=== PATIENT | female | born 1960 | race Caucasian/White ===

== ENCOUNTER 2018-10-24 18:52 | Emergency (ER) | payer MEDICARE ==
[~2018-10-24] VITALS: Ht 157.5 cm; Wt 84.1 kg
[~2018-10-24 18:52] MED LIST: ALBU6.7H9 INH; BUPR-94 PO; EPIN0.3P8 IM; ERGO500041 PO; ESTR1PAT TD; GABA600T13 PO; HYDR-4353 PO; HYDR12.55 PO; LAMO25TA5 PO; LURA120T PO; MODA200T48 PO; OMEP-50 PO; PRED10TA23 PO; PROG200C11 PO; ZOLP5TAB2 PO
[2018-10-24 18:54] VITALS: BP 159/95
[2018-10-24] MEDS ORDERED: famotidine/PF 10 mg/ml inj IV ONE (19:10)
[2018-10-24] MEDS ORDERED: methylPREDNISolone sod succ 125mg/2ml vial IV ONE (19:10)
[2018-10-24] MEDS ORDERED: EPIN0.3P3 IJ (20:18)
[2018-10-24] MEDS ORDERED: PRED20TA PO (20:18)
== END 2018-10-24 20:33 | disposition home or self-care (01) ==
LOC: ER 18:53
DX: T78.3XXA Angioneurotic edema, initial encounter (principal); T78.1XXA Other adverse food reactions, not elsewhere classified, initial encounter; I10 Essential (primary) hypertension; K21.9 Gastro-esophageal reflux disease without esophagitis; E11.9 Type 2 diabetes mellitus without complications; F31.9 Bipolar disorder, unspecified; Z91.011 Allergy to milk products; Z88.0 Allergy status to penicillin; Z88.8 Allergy status to other drugs, medicaments and biological substances; Z88.1 Allergy status to other antibiotic agents; Z79.899 Other long term (current) drug therapy; X58.XXXA Exposure to other specified factors, initial encounter
CPT/HCPCS: 96374; 96375; 99283; J2930; J3490

== ENCOUNTER 2020-01-04 19:55 | Emergency (ER) | payer MEDICARE ==
[~2020-01-04] VITALS: Ht 157.5 cm; Wt 82.6 kg
[~2020-01-04 19:55] MED LIST changes: +EPIN0.3P3 IJ
--- NOTE | 2020-01-04 20:17 | NUR ---
UPON DR ROMANO ASSSESSMENTS OF THE PATIENT ABD PT CRIED OUT IN SERVE PAIN REPORTING THAT IT RADIATES FROM HER ABDOMEN TO HER PELVIC REGION TO HER LOWER BACK . UPON LIFTING HER LEFT LEG APPROX 45 DEGREES SHE ALSO HAD SEVERE PAIN ACROSS HER LOWER BACK . DR COLVIN WILL REASSESS PT AFTER SHE HAS BEEN MEDICATED FOR DISCOMFORT . REPORTED OFF TO PRIMARY FLAVIA MENDOZA
[2020-01-04] MEDS ORDERED: diazepam inj 5 MG/ML inj. IV ONE (20:20)
--- NOTE | 2020-01-04 20:42 | NUR ---
Pt's IV started by EMS infiltrated, one unsuccessful attempt to the right wrist. Will ask another staff engineer to start IV access then will medicate as ordered.
[2020-01-04] MEDS ORDERED: morphine 4 MG/ML inj SYRINge IV ONE (21:15)
[2020-01-04 21:41] LABS: BASOPHILS # (AUTO) 0.1 X10'3 (0-0.2); BASOPHILS % (AUTO) 0.5 % (0-1); EOSINOPHILS # (AUTO) 0.1 X10'3 (0-0.9); EOSINOPHILS % (AUTO) 0.8 % (0-6); HEMATOCRIT 43.4 % (35.0-45.0); HEMOGLOBIN 14.7 g/dl (12.0-16.0); LYMPHOCYTES # (AUTO) 1.2 X10'3 (1.1-4.8); LYMPHOCYTES % (AUTO) 11.9 % (21-51); MEAN CORPUSCULAR HEMOGLOBIN 31.4 PG (27.0-31.0); MEAN CORPUSCULAR VOLUME 92.3 FL (78-98); MEAN PLATELET VOLUME 8.4 FL (7.4-10.4); MONOCYTES # (AUTO) 0.7 X10'3 (0-0.9); MONOCYTES % (AUTO) 6.7 % (2-12); NEUTROPHILS # (AUTO) 8.4 X10'3 (1.8-7.7); NEUTROPHILS % (AUTO) 80.1 % (42-75); PLATELET COUNT 194 X10'3 (140-440); RED CELL DISTRIBUTION WIDTH 12.8 % (11.5-14.5); WHITE BLOOD COUNT 10.5 X10'3 (4.5-11.0)
[2020-01-04 21:55] LABS: ALBUMIN 3.8 G/DL (3.4-5.0); ANION GAP 7 (8-16); BLOOD UREA NITROGEN 21 MG/DL (7-18); BUN/CREATININE RATIO 16.9 (6.6-38.0); CALCIUM 9.5 MG/DL (8.5-10.1); CHLORIDE 101 MMOL/L (99-107); CREATININE 1.24 MG/DL (0.40-0.90); GLUCOSE 117 MG/DL (70-104); POTASSIUM 3.1 MMOL/L (3.5-5.1); SODIUM 138 MMOL/L (135-145); TOTAL CARBON DIOXIDE 30.3 MMOL/L (24-32); eGFR 45 ML/MIN
--- NOTE | 2020-01-04 22:15 | NUR ---
Pt medicated as ordered for pain.
[2020-01-04] MEDS ORDERED: iohexol 300mg/ml 100ml inj. ONE (22:26)
[2020-01-04] MEDS ORDERED: morphine 10mg/ml inj. IV ONE (22:55)
[2020-01-04] MEDS ORDERED: acetaminophen 325mg tablet PO ONE (22:55)
[2020-01-04] MEDS ORDERED: gabapentin 400mg capsule PO ONE (22:55)
[2020-01-04] MEDS ORDERED: ketorolac trometh. 30mg/ml inj. IV ONE (22:55)
[2020-01-04] MEDS ORDERED: LIDOcaine 5% patch TP ONE (22:55)
[2020-01-04] MEDS ORDERED: normal saline 1000ml 1,000 ML IV ONE ×2 (22:55)
[2020-01-04] MEDS ORDERED: ketamine 10mg/ml 20ml inj 25 MG in normal saline 100ml IV soln 97.5 ML IV ONE (23:20)
[2020-01-04] MEDS ORDERED: magnesium 2GM in 50ml NS 50 ML IV ONE (23:20)
[2020-01-04] MEDS ORDERED: proCHLORperazine 10 MG/2 ml inj IV ONE (23:20)
--- NOTE | 2020-01-05 00:20 | NUR ---
PT TO CT VIA [facility]
--- NOTE | 2020-01-05 00:46 | NUR ---
held ketamine per dr martini . pt currently comfortable . reports being really sleepy . o2 per nc place at 2 l to help with desats to 90 % . pt currently at 96 % 1.5 l nc will continue to monitor and reassess.
[2020-01-05 01:56] LABS: CLARITY,URINE CLEAR (Clear); COLOR,URINE YELLOW (Yellow); GLUCOSE, URINE NEGATIVE (Neg); KETONES,URINE NEGATIVE (Neg); LEUKOCYTE ESTERASE ,URINE NEGATIVE (Neg); NITRITES, URINE NEGATIVE (Neg); OCCULT BLOOD,URINE NEGATIVE (Neg); PROTEIN,URINE NEGATIVE (Neg); UROBILINOGEN,URINE 0.2 E.U/dL (0.2-1.0)
[2020-01-05 02:01] LABS: UA COLLECTION TYPE CLN CATCH MIDSTREAM
[2020-01-05 02:09] LABS: URINE AMPHETAMINE SCREEN NEGATIVE (Neg); URINE BARBITUATE SCREEN NEGATIVE (Neg); URINE BENZODIAZEPINES SCREEN NEGATIVE (Neg); URINE CANNABINOID SCREEN POSITIVE (Neg); URINE COCAINE SCREEN NEGATIVE (Neg); URINE METHADONE SCREEN NEGATIVE (Neg); URINE OPIATE SCREEN POSITIVE (Neg); URINE PHENCYCLIDINE SCREEN NEGATIVE (Neg)
[2020-01-05] MEDS ORDERED: ACET-812 PO (02:09)
[2020-01-05] MEDS ORDERED: MELO-100 PO (02:09)
[2020-01-05] MEDS ORDERED: CYCL-1 PO (02:09)
[2020-01-05 04:56] VITALS: BP 152/86
== END 2020-01-05 03:35 | disposition home or self-care (01) ==
LOC: ER 19:55
DX: M54.5 Low back pain (principal); G89.29 Other chronic pain; I10 Essential (primary) hypertension; K21.9 Gastro-esophageal reflux disease without esophagitis; E11.9 Type 2 diabetes mellitus without complications; F31.9 Bipolar disorder, unspecified; F12.90 Cannabis use, unspecified, uncomplicated; Z90.49 Acquired absence of other specified parts of digestive tract; Z91.011 Allergy to milk products; Z98.890 Other specified postprocedural states; Z88.0 Allergy status to penicillin; Z91.018 Allergy to other foods; Z79.899 Other long term (current) drug therapy
CPT/HCPCS: 36415; 74177; 80048; 80305; 81003; 85025; 96361; 96365; 96366; 96375; 96376; 99285; J0780; J1885; J2270; J3360; J3475; J7030; Q9967

== ENCOUNTER 2020-09-20 13:17 | Outpatient (CLI) | payer MEDICARE, MEDICAID ==
[~2020-09-20 13:17] MED LIST changes: +ACET-812 PO; +CYCL-1 PO; +MELO-100 PO
== END 2020-09-20 23:59 | disposition home or self-care (01) ==
LOC: CARD DIAG 13:17
PROVIDERS: ATTEND Family Medicine
DX: I08.0 Rheumatic disorders of both mitral and aortic valves (principal)
CPT/HCPCS: 93306

== ENCOUNTER 2021-03-26 10:05 | Day surgery (SDC) | payer MEDICARE, MEDICAID ==
[~2021-03-26] VITALS: Ht 157.5 cm; Wt 82.4 kg
[2021-03-26] VITALS (15 sets, daily range): BP systolic 117–165; BP diastolic 77–122
[2021-03-26] MEDS ORDERED: ringers solution, lacted 1,000 ML IV SCH (10:46)
[2021-03-26] MEDS ORDERED: famotidine 20mg tablet PO ONE (10:46)
[2021-03-26] MEDS ORDERED: clindamycin-Cleocin 900mg/D5W 50 ML IV ONE (10:50)
[2021-03-26] MEDS ORDERED: meperidine/PF 25mg/ml syringe IV STA (10:52)
[2021-03-26 11:14] LABS: BASOPHILS # (AUTO) 0.1 X10'3 (0-0.2); BASOPHILS % (AUTO) 1.2 % (0-1); EOSINOPHILS # (AUTO) 0.5 X10'3 (0-0.9); EOSINOPHILS % (AUTO) 6.1 % (0-6); LYMPHOCYTES # (AUTO) 1.9 X10'3 (1.1-4.8); LYMPHOCYTES % (AUTO) 24.6 % (21-51); MEAN CORPUSCULAR HEMOGLOBIN 29.8 PG (27.0-31.0); MEAN CORPUSCULAR HGB CONC 34.7 g/dL (33.0-36.5); MEAN CORPUSCULAR VOLUME 85.8 FL (78-98); MONOCYTES # (AUTO) 0.6 X10'3 (0-0.9); MONOCYTES % (AUTO) 7.6 % (2-12); NEUTROPHILS # (AUTO) 4.7 X10'3 (1.8-7.7); NEUTROPHILS % (AUTO) 60.5 % (42-75); PRE OP HEMATOCRIT 49.2 % (35.0-45.0); PRE OP HEMOGLOBIN 17.1 g/dL (12.0-16.0); PRE OP PLATELET COUNT 254 X10'3 (140-440); RED BLOOD COUNT 5.74 X10'6 (4.20-5.60); RED CELL DISTRIBUTION WIDTH 13.4 % (11.5-14.5)
[2021-03-26] MEDS ORDERED: CARV12.549 PO (11:25)
[2021-03-26] MEDS ORDERED: CYCL-1 PO (11:25)
[2021-03-26] MEDS ORDERED: AMLO5TAB16 PO (11:25)
[2021-03-26] MEDS ORDERED: ZOFRAN PO (11:25)
[2021-03-26] MEDS ORDERED: HYDR25TA4 PO (11:25)
[2021-03-26] MEDS ORDERED: OMEP-50 PO (11:25)
[2021-03-26] MEDS ORDERED: SUCR1TAB PO (11:25)
[2021-03-26] MEDS ORDERED: METF-436 PO (11:25)
[2021-03-26 11:26] LABS: ALANINE AMINOTRANSFERASE 19 U/L (12-78); ALBUMIN 3.7 G/DL (3.4-5.0); ALKALINE PHOSPHATASE 70 IU/L (46-116); ANION GAP 11 (8-16); ASPARTATE AMINO TRANSFERASE 23 U/L (10-37); BILIRUBIN,TOTAL 1.7 MG/DL (0.1-1.0); BLOOD UREA NITROGEN 13 MG/DL (7-18); BUN/CREATININE RATIO 12.6 (6.6-38.0); CALCIUM 9.5 MG/DL (8.5-10.1); CHLORIDE 103 MMOL/L (99-107); CREATININE 1.03 MG/DL (0.40-0.90); GLUCOSE 143 MG/DL (70-104); SODIUM 140 MMOL/L (135-145); TOTAL PROTEIN 7.4 G/DL (6.4-8.2); eGFR 55 ML/MIN
[2021-03-26 11:31] LABS: POTASSIUM 2.8 MMOL/L (3.5-5.1)
[2021-03-26] MEDS ORDERED: potassium CL 10mEq/100ml bag 100 ML IV SCH (11:55)
[2021-03-26] MEDS ORDERED: potassium Cl 10 mEq/100mL bag IV SCH (11:55)
[2021-03-26] MEDS ORDERED: BUPIVAcaine/PF 2.5 mg/ml (0.25%) 30ml vial IJ ONE (12:30)
[2021-03-26] MEDS ORDERED: sugammadex 200mg/2ml injection IV ONE (12:45)
--- NOTE | 2021-03-26 12:59 | NUR ---
Received from OR via [facility], accompanied by Anesthesiologist DR HAYDEN and report given by Anesthesiologist. PT LOUD, COUGHING, DENIES PAIN. ABDOMEN W/1 [place] DRSG TO UMBILICUS CDI. Addendum: 03/26/21 at 1356 by Elis Oviedo RN Amended: Links added.
[2021-03-26] MEDS ORDERED: benzocaine/menthol oral lozeng 1 EACH BOX MM PRN (13:05)
--- NOTE | 2021-03-26 15:09 | NUR ---
PT STATES REMAINS COMFORTABLE, COUGH SUBSIDED. PT UP AND ABLE TO AMBULATE SAFELY. D/C INSTRUCTIONS GIVEN AND GONE OVER W/PT WHO VERBALIZED UNDERSTANDING. PT D/CD TO HOME VIA W/C TO PRIVATE VEHICLE W/O INCIDENT. Addendum: 03/26/21 at 1538 by Elis Oviedo RN Amended: Links added.
== END 2021-03-26 15:09 | disposition home or self-care (01) ==
LOC: PAS 10:05
PROVIDERS: ATTEND Surgery
DX: K43.6 Other and unspecified ventral hernia with obstruction, without gangrene (principal); E11.22 Type 2 diabetes mellitus with diabetic chronic kidney disease; I12.9 Hypertensive chronic kidney disease with stage 1 through stage 4 chronic kidney disease, or unspecified chronic kidney disease; N18.30 Chronic kidney disease, stage 3 unspecified; F32.A Depression, unspecified; J45.909 Unspecified asthma, uncomplicated; E66.9 Obesity, unspecified; Z68.33 Body mass index [BMI] 33.0-33.9, adult; Z88.0 Allergy status to penicillin; Z88.1 Allergy status to other antibiotic agents; Z88.8 Allergy status to other drugs, medicaments and biological substances; Z79.899 Other long term (current) drug therapy; Z20.822 Contact with and (suspected) exposure to COVID-19
CPT/HCPCS: 36415; 49561; 80053; 82948; 85025; 87635; 93005; C9803; J2175; J3490; J7030; J7120; Z7506; Z7512; A4618; A7000

== ENCOUNTER 2021-04-10 11:45 | Day surgery (SDC) | payer MEDICARE, MEDICAID ==
[~2021-04-10] VITALS: Ht 157.5 cm; Wt 85.1 kg
[2021-04-10] VITALS (11 sets, daily range): BP systolic 110–155; BP diastolic 69–88
[~2021-04-10 11:45] MED LIST changes: -ACET-812 PO; -ALBU6.7H9 INH; +AMLO5TAB16 PO; -BUPR-94 PO; +CARV12.549 PO; -EPIN0.3P3 IJ; -EPIN0.3P8 IM; -ERGO500041 PO; -ESTR1PAT TD; -GABA600T13 PO; -HYDR-4353 PO; -HYDR12.55 PO; +HYDR25TA4 PO; -LAMO25TA5 PO; -LURA120T PO; -MELO-100 PO; +METF-436 PO; -MODA200T48 PO; -OMEP-50 PO; +OMEP20CA16 PO; -PRED10TA23 PO; -PROG200C11 PO; +ZOFRAN PO; -ZOLP5TAB2 PO; +clindamycin-Cleocin 900mg/D5W 50 ML IV ONE; +famotidine 20mg tablet PO ONE; +ringers solution, lacted 1,000 ML IV SCH
[2021-04-10 12:32] LABS: BASOPHILS # (AUTO) 0.1 X10'3 (0-0.2); BASOPHILS % (AUTO) 1.3 % (0-1); EOSINOPHILS # (AUTO) 0.5 X10'3 (0-0.9); EOSINOPHILS % (AUTO) 9.4 % (0-6); LYMPHOCYTES # (AUTO) 1.6 X10'3 (1.1-4.8); LYMPHOCYTES % (AUTO) 28.3 % (21-51); MEAN CORPUSCULAR HEMOGLOBIN 30.2 PG (27.0-31.0); MEAN CORPUSCULAR HGB CONC 34.7 g/dL (33.0-36.5); MEAN CORPUSCULAR VOLUME 87.2 FL (78-98); MEAN PLATELET VOLUME 7.6 FL (7.4-10.4); MONOCYTES # (AUTO) 0.5 X10'3 (0-0.9); PRE OP HEMOGLOBIN 14.9 g/dL (12.0-16.0); PRE OP PLATELET COUNT 261 X10'3 (140-440); RED BLOOD COUNT 4.93 X10'6 (4.20-5.60); RED CELL DISTRIBUTION WIDTH 13.7 % (11.5-14.5)
[2021-04-10] MEDS ORDERED: ondansetron/PF 4mg/2ml inj IV PRN (12:35)
[2021-04-10] MEDS ORDERED: morphine 4 MG/ML inj SYRINge IV PRN (12:35)
[2021-04-10] MEDS ORDERED: proCHLORperazine 10 MG/2 ml inj IV PRN (12:35)
[2021-04-10] MEDS ORDERED: ringers solution, lacted 1,000 ML IV SCH (12:35)
[2021-04-10] MEDS ORDERED: meperidine/PF 25mg/ml syringe IV PRN ×3 (12:35)
[2021-04-10] MEDS ORDERED: morphine 2 MG/ML inj. syringe IV PRN (12:35)
[2021-04-10] MEDS ORDERED: BUPIVAcaine/PF 2.5 mg/ml (0.25%) 30ml vial ONE ×2 (12:40→13:53)
[2021-04-10 13:06] LABS: ALBUMIN 3.6 G/DL (3.4-5.0); ALBUMIN/GLOBULIN RATIO 1.2 (1.1-1.5); ALKALINE PHOSPHATASE 63 IU/L (46-116); BLOOD UREA NITROGEN 14 MG/DL (7-18); BUN/CREATININE RATIO 17.3 (6.6-38.0); CALCIUM 8.8 MG/DL (8.5-10.1); CHLORIDE 105 MMOL/L (99-107); CREATININE 0.81 MG/DL (0.40-0.90); PRE OP ALT 24 U/L (30-65); PRE OP ANION GAP 8 (8-16); PRE OP AST 20 U/L (10-37); PRE OP BILIRUB, TOTAL 0.8 MG/DL (0.0-1.0); PRE OP GLUCOSE 104 MG/DL (70-104); PRE OP POTASSIUM 3.9 MMOL/L (3.4-5.1); PRE OP SODIUM 140 MMOL/L (135-145); TOTAL PROTEIN 6.7 G/DL (6.4-8.2); eGFR 73 ML/MIN
[2021-04-10 13:11] LABS: CLARITY,URINE CLEAR (Clear); COLOR,URINE YELLOW (Yellow); GLUCOSE, URINE NEGATIVE (Neg); KETONES,URINE NEGATIVE (Neg); LEUKOCYTE ESTERASE ,URINE NEGATIVE (Neg); NITRITES, URINE NEGATIVE (Neg); OCCULT BLOOD,URINE NEGATIVE (Neg); PH,URINE 5.5 (4.8-8.0); PROTEIN,URINE NEGATIVE (Neg); UROBILINOGEN,URINE 0.2 E.U/dL (0.2-1.0)
[2021-04-10 13:30] LABS: UA COLLECTION TYPE CLN CATCH MIDSTREAM
[2021-04-10] MEDS ORDERED: sevoflurane 250ml liquid IH ONE (13:46)
[2021-04-10] MEDS ORDERED: neostigmine methylsulfate 1 MG/ML 10ml vial ONE (13:46)
[2021-04-10] MEDS ORDERED: dexamethasone sod phosphate 10mg/ml inj ONE (13:46)
[2021-04-10] MEDS ORDERED: glycopyrrolate 0.2mg/ml inj ONE (13:46)
[2021-04-10] MEDS ORDERED: fentaNYL /PF 50mcg/ml 5ml ampule ONE (13:52)
[2021-04-10] MEDS ORDERED: midazolam 1 mg/ML 2ml injection ONE (13:52)
[2021-04-10] MEDS ORDERED: propofol inj 20 ML IV ONE (13:52)
[2021-04-10] MEDS ORDERED: rocuronium 10mg/ml inj IV ONE (13:52)
[2021-04-10] MEDS ORDERED: BUPIVAcaine/PF 2.5mg/ml (0.25%) 10ml vial ONE (13:53)
[2021-04-10] MEDS ORDERED: BUPIVACAINE liposomal/PF 13.3 MG/ML vial IM ONE (13:53)
[2021-04-10] MEDS ORDERED: ondansetron/PF 4mg/2ml inj ONE (14:45)
[2021-04-10] MEDS ORDERED: labetalol 20mg/4ml (5mg/ml) syringe IV ONE (14:45)
[2021-04-10] MEDS ORDERED: ketorolac trometh. 30mg/ml inj. ONE (15:17)
--- NOTE | 2021-04-10 15:22 | NUR ---
Received from OR via , accompanied by Anesthesiologist DR GONSALES and report given by Anesthesiolgist. PT PRESENTS WITH 20G RIGHT HAND, ABD DRESSING DRY AND INTACT. VSS Addendum: 04/10/21 at 1529 by Betty Gimenez RN, RN Amended: Links added.
--- NOTE | 2021-04-10 16:52 | NUR ---
PT HAS MET ALL DC CRITERIA. IV DC'D WITH CATHETER INTACT. DC ISNTRUCTIONS REVIEWED WITH PT, PT VERBALIZED UNDERSTANDING WITH NO FURTHER QUESTIONS AT THIS TIME. PT WHEELED [facility] OF [facility] IS WHEELCHAIR TO PRIVATE VEHICLE WHERE PT'S SON WAS WAITING TO TAKE PT HOME. Addendum: 04/10/21 at 1705 by Betty Gimenez RN, RN Amended: Links added.
== END 2021-04-10 16:52 | disposition home or self-care (01) ==
LOC: OR 11:45
PROVIDERS: ATTEND Surgery
DX: K43.2 Incisional hernia without obstruction or gangrene (principal); E11.22 Type 2 diabetes mellitus with diabetic chronic kidney disease; I12.9 Hypertensive chronic kidney disease with stage 1 through stage 4 chronic kidney disease, or unspecified chronic kidney disease; N18.30 Chronic kidney disease, stage 3 unspecified; F32.9 Major depressive disorder, single episode, unspecified; K21.9 Gastro-esophageal reflux disease without esophagitis; E66.9 Obesity, unspecified; Z68.34 Body mass index [BMI] 34.0-34.9, adult; G89.29 Other chronic pain; Z79.899 Other long term (current) drug therapy; Z88.0 Allergy status to penicillin; Z88.8 Allergy status to other drugs, medicaments and biological substances; Z90.49 Acquired absence of other specified parts of digestive tract; Z98.890 Other specified postprocedural states; Z20.822 Contact with and (suspected) exposure to COVID-19; Z82.49 Family history of ischemic heart disease and other diseases of the circulatory system
CPT/HCPCS: 36415; 49654; 64488; 80053; 81003; 82948; 85025; 87635; C1781; C9290; C9803; J1100; J1885; J2175; J2250; J2405; J2704; J2710; J3010; J3490; J7120; Z7506; Z7508; Z7512; A4215; A4618; A7000

== ENCOUNTER 2021-05-09 09:10 | Day surgery (SDC) | payer MEDICARE, OTHER ==
[~2021-05-09] VITALS: Ht 157.5 cm; Wt 84.6 kg
[~2021-05-09 09:10] MED LIST changes: -clindamycin-Cleocin 900mg/D5W 50 ML IV ONE; -famotidine 20mg tablet PO ONE; -ringers solution, lacted 1,000 ML IV SCH
[2021-05-09 09:25] VITALS: BP_SYST 159; BP_DIAS 124; BP_DIAS 127
[2021-05-09] MEDS ORDERED: albumin 25% 100mL bottle x 1 IV PRN (09:45)
--- NOTE | 2021-05-09 10:45 | NUR ---
No interventions or procedures performed for this patient. Patient a/o x 4 with stable vital signs at time of discharge. Patient ambulated to lobby. All discharge needs met.
[2021-05-10] MEDS ORDERED: pneumococcal 23-VAL P-sac vacc 25 mcg/0.5ml vial IMVAC ONE (13:10)
== END 2021-05-09 10:45 | disposition home or self-care (01) ==
LOC: SSTAY O 09:10
PROVIDERS: ATTEND Radiology Diagnostic Radiology
DX: R18.8 Other ascites (principal); Z53.8 Procedure and treatment not carried out for other reasons; K74.60 Unspecified cirrhosis of liver; I10 Essential (primary) hypertension; E11.9 Type 2 diabetes mellitus without complications; Z98.890 Other specified postprocedural states; Z88.8 Allergy status to other drugs, medicaments and biological substances; Z88.0 Allergy status to penicillin; Z79.899 Other long term (current) drug therapy; Z82.49 Family history of ischemic heart disease and other diseases of the circulatory system
CPT/HCPCS: 76705

== ENCOUNTER 2021-07-04 16:25 | Emergency (ER) | payer MEDICARE, OTHER ==
[~2021-07-04] VITALS: Ht 157.5 cm; Wt 81.8 kg
[~2021-07-04 16:25] MED LIST changes: -CYCL-1 PO; -METF-436 PO; +iohexol 300mg/ml 100ml inj. ONE
[2021-07-04 16:37] VITALS: BP 161/83
[2021-07-04 17:32] LABS: BASOPHILS # (AUTO) 0.1 X10'3 (0-0.2); BASOPHILS % (AUTO) 0.7 % (0-1); EOSINOPHILS # (AUTO) 0.2 X10'3 (0-0.9); HEMATOCRIT 40.4 % (35.0-45.0); HEMOGLOBIN 14.1 g/dl (12.0-16.0); LYMPHOCYTES % (AUTO) 24.7 % (21-51); MEAN CORPUSCULAR HEMOGLOBIN 30.4 PG (27.0-31.0); MEAN CORPUSCULAR HGB CONC 34.9 g/dL (33.0-36.5); MEAN CORPUSCULAR VOLUME 87.2 FL (78-98); MEAN PLATELET VOLUME 6.9 FL (7.4-10.4); MONOCYTES # (AUTO) 0.5 X10'3 (0-0.9); MONOCYTES % (AUTO) 6.4 % (2-12); NEUTROPHILS # (AUTO) 5.3 X10'3 (1.8-7.7); NEUTROPHILS % (AUTO) 65.2 % (42-75); PLATELET COUNT 414 X10'3 (140-440); RED BLOOD COUNT 4.64 X10'6 (4.20-5.60); RED CELL DISTRIBUTION WIDTH 13.9 % (11.5-14.5); WHITE BLOOD COUNT 8.2 X10'3 (4.5-11.0)
[2021-07-04 17:44] LABS: ALANINE AMINOTRANSFERASE 19 U/L (12-78); ALBUMIN/GLOBULIN RATIO 0.7 (1.1-1.5); ALKALINE PHOSPHATASE 79 IU/L (46-116); ANION GAP 10 (8-16); ASPARTATE AMINO TRANSFERASE 15 U/L (10-37); BILIRUBIN,TOTAL 0.3 MG/DL (0.1-1.0); BLOOD UREA NITROGEN 15 MG/DL (7-18); BUN/CREATININE RATIO 12.7 (6.6-38.0); CALCIUM 8.5 MG/DL (8.5-10.1); CHLORIDE 100 MMOL/L (99-107); CREATININE 1.18 MG/DL (0.40-0.90); GLUCOSE 133 MG/DL (70-104); POTASSIUM 3.5 MMOL/L (3.5-5.1); SODIUM 139 MMOL/L (135-145); TOTAL CARBON DIOXIDE 29.3 MMOL/L (24-32); TOTAL PROTEIN 7.4 G/DL (6.4-8.2); eGFR 47 ML/MIN
== END 2021-07-04 18:04 | disposition home or self-care (01) ==
LOC: ER 16:26
DX: L03.116 Cellulitis of left lower limb (principal); M79.89 Other specified soft tissue disorders; I10 Essential (primary) hypertension; K21.9 Gastro-esophageal reflux disease without esophagitis; E11.9 Type 2 diabetes mellitus without complications; G89.29 Other chronic pain; F31.9 Bipolar disorder, unspecified; F12.90 Cannabis use, unspecified, uncomplicated; Z90.49 Acquired absence of other specified parts of digestive tract; Z88.0 Allergy status to penicillin; Z88.8 Allergy status to other drugs, medicaments and biological substances; Z79.899 Other long term (current) drug therapy
CPT/HCPCS: 36415; 80053; 85025; 93971; 99284; Q9967

== ENCOUNTER 2021-07-16 10:10 | Outpatient (CLI) | payer MEDICARE, OTHER ==
[~2021-07-16 10:10] MED LIST changes: -iohexol 300mg/ml 100ml inj. ONE
== END 2021-07-16 23:59 | disposition home or self-care (01) ==
LOC: RAD 10:10
PROVIDERS: ATTEND Nurse Practitioner
DX: L03.116 Cellulitis of left lower limb (principal)
CPT/HCPCS: 73718

== ENCOUNTER 2021-09-04 10:53 | Day surgery (SDC) | payer MEDICARE, OTHER ==
[~2021-09-04] VITALS: Ht 157.5 cm; Wt 79.6 kg
[2021-09-04] VITALS (10 sets, daily range): BP systolic 114–157; BP diastolic 52–88
[2021-09-04] MEDS ORDERED: MIDAZolam 1mg/ml 10ml vial IV ONE (11:30)
[2021-09-04] MEDS ORDERED: fentaNYL/PF 50MCG/1 ML 2ML syringe IV ONE (11:30)
[2021-09-04] MEDS ORDERED: normal saline 1000ml 1,000 ML IV SCH (12:00)
[2021-09-04 12:24] LABS: BASOPHILS # (AUTO) 0.1 X10'3 (0-0.2); EOSINOPHILS # (AUTO) 0.2 X10'3 (0-0.9); EOSINOPHILS % (AUTO) 4.1 % (0-6); HEMATOCRIT 42.3 % (35.0-45.0); HEMOGLOBIN 14.3 g/dl (12.0-16.0); LYMPHOCYTES # (AUTO) 1.5 X10'3 (1.1-4.8); LYMPHOCYTES % (AUTO) 26.3 % (21-51); MEAN CORPUSCULAR HEMOGLOBIN 29.6 PG (27.0-31.0); MEAN CORPUSCULAR HGB CONC 33.8 g/dL (33.0-36.5); MEAN CORPUSCULAR VOLUME 87.8 FL (78-98); MEAN PLATELET VOLUME 8.4 FL (7.4-10.4); MONOCYTES # (AUTO) 0.5 X10'3 (0-0.9); MONOCYTES % (AUTO) 8.4 % (2-12); NEUTROPHILS # (AUTO) 3.4 X10'3 (1.8-7.7); NEUTROPHILS % (AUTO) 60.2 % (42-75); PLATELET COUNT 211 X10'3 (140-440); RED BLOOD COUNT 4.81 X10'6 (4.20-5.60); RED CELL DISTRIBUTION WIDTH 14.7 % (11.5-14.5); WHITE BLOOD COUNT 5.7 X10'3 (4.5-11.0)
[2021-09-04] MEDS ORDERED: midazolam 1 mg/ML 2ml injection ONE (13:11)
[2021-09-04] MEDS ORDERED: fentaNYL/PF 50MCG/1 ML 2ML syringe ONE (13:11)
[2021-09-04] MEDS ORDERED: LIDOcaine 1%/PF 5ML 10 MG/ML VIAL ONE ×2 (13:11)
== END 2021-09-04 16:20 | disposition home or self-care (01) ==
LOC: SSTAY O 10:53
PROVIDERS: ATTEND Radiology Diagnostic Radiology
DX: K75.81 Nonalcoholic steatohepatitis (NASH) (principal); K74.02 Hepatic fibrosis, advanced fibrosis; E11.22 Type 2 diabetes mellitus with diabetic chronic kidney disease; I12.9 Hypertensive chronic kidney disease with stage 1 through stage 4 chronic kidney disease, or unspecified chronic kidney disease; N18.9 Chronic kidney disease, unspecified; Z87.11 Personal history of peptic ulcer disease; Z88.8 Allergy status to other drugs, medicaments and biological substances; Z88.0 Allergy status to penicillin; Z79.899 Other long term (current) drug therapy
CPT/HCPCS: 36415; 47000; 76942; 85025; 85610; 99152; 99153; J2250; J3010; J3490; J7030

== ENCOUNTER 2022-03-12 07:29 | Day surgery (SDC) | payer MEDICARE, MEDICAID ==
[2022-03-05 16:10] LABS: BASOPHILS # (AUTO) 0.1 X10'3 (0-0.2); BASOPHILS % (AUTO) 1.1 % (0-1); EOSINOPHILS # (AUTO) 1.1 X10'3 (0-0.9); EOSINOPHILS % (AUTO) 11.9 % (0-6); LYMPHOCYTES # (AUTO) 1.7 X10'3 (1.1-4.8); LYMPHOCYTES % (AUTO) 18.1 % (21-51); MEAN CORPUSCULAR HEMOGLOBIN 29.9 PG (27.0-31.0); MEAN CORPUSCULAR HGB CONC 33.9 g/dL (33.0-36.5); MEAN CORPUSCULAR VOLUME 88.2 FL (78-98); MEAN PLATELET VOLUME 7.8 FL (7.4-10.4); MONOCYTES # (AUTO) 0.6 X10'3 (0-0.9); MONOCYTES % (AUTO) 6.2 % (2-12); NEUTROPHILS # (AUTO) 5.8 X10'3 (1.8-7.7); NEUTROPHILS % (AUTO) 62.7 % (42-75); PRE OP HEMATOCRIT 45.8 % (35.0-45.0); PRE OP HEMOGLOBIN 15.5 g/dL (12.0-16.0); PRE OP PLATELET COUNT 236 X10'3 (140-440); RED BLOOD COUNT 5.19 X10'6 (4.20-5.60); RED CELL DISTRIBUTION WIDTH 14.3 % (11.5-14.5)
[2022-03-05 16:16] LABS: CLARITY,URINE CLOUDY (Clear); COLOR,URINE YELLOW (Yellow); GLUCOSE, URINE NEGATIVE (Neg); KETONES,URINE NEGATIVE (Neg); LEUKOCYTE ESTERASE ,URINE NEGATIVE (Neg); OCCULT BLOOD,URINE NEGATIVE (Neg); PH,URINE 5.5 (4.8-8.0); PROTEIN,URINE NEGATIVE (Neg); UROBILINOGEN,URINE 0.2 E.U/dL (0.2-1.0)
[2022-03-05 16:26] LABS: NITRITES, URINE NEGATIVE (Neg); UA COLLECTION TYPE NON-SPECIFIED
[2022-03-05 16:31] LABS: SQUAMOUS EPITHELIAL CELL,UR MODERATE /LPF (FEW)
[2022-03-05 16:32] LABS: MUCUS STRANDS MODERATE /LPF (Neg)
[2022-03-05 16:33] LABS: BACTERIA,URINE FEW /HPF (Neg); RBC,URINE 0-2 /HPF (0-2); WBC,URINE 0-4 /HPF (0-4)
[2022-03-05 16:52] LABS: ALBUMIN 3.5 G/DL (3.4-5.0); ALBUMIN/GLOBULIN RATIO 0.9 (1.1-1.5); ALKALINE PHOSPHATASE 69 IU/L (46-116); BLOOD UREA NITROGEN 18 MG/DL (7-18); BUN/CREATININE RATIO 17.6 (6.6-38.0); CALCIUM 9.1 MG/DL (8.5-10.1); CHLORIDE 104 MMOL/L (99-107); CREATININE 1.02 MG/DL (0.40-0.90); PRE OP ALT 19 U/L (30-65); PRE OP ANION GAP 11 (8-16); PRE OP AST 15 U/L (10-37); PRE OP BILIRUB, TOTAL 0.6 MG/DL (0.0-1.0); PRE OP GLUCOSE 157 MG/DL (70-104); PRE OP POTASSIUM 3.6 MMOL/L (3.4-5.1); PRE OP SODIUM 140 MMOL/L (135-145); TOTAL CARBON DIOXIDE 25.1 MMOL/L (24-32); TOTAL PROTEIN 7.3 G/DL (6.4-8.2); eGFR 55 ML/MIN
[~2022-03-12] VITALS: Ht 157.5 cm; Wt 88.0 kg
[2022-03-12] VITALS (14 sets, daily range): BP systolic 144–165; BP diastolic 80–105
[~2022-03-12 07:29] MED LIST changes: +DOCUMENT DATE & TIME OF BETA-BLOCKER PO ONE; -HYDR25TA4 PO; +SUCR1TAB PO; -ZOFRAN PO; +clindamycin-Cleocin 900mg/D5W 50 ML IV ONE; +famotidine 20mg tablet PO ONE; +ringers solution, lacted 1,000 ML IV SCH
[2022-03-12] MEDS ORDERED: BUPIVAcaine 0.5% inj/PF 30 ML ONE (10:16)
[2022-03-12] MEDS ORDERED: BUPIVAcaine/PF 5 mg/ml 10ml ONE (10:27)
[2022-03-12] MEDS ORDERED: sugammadex 200mg/2ml injection IV ONE (10:27)
[2022-03-12] MEDS ORDERED: BUPIVACAINE liposomal/PF 13.3 MG/ML vial IM ONE (10:28)
[2022-03-12] MEDS ORDERED: midazolam 1 mg/ML 2ml injection ONE (10:31)
[2022-03-12] MEDS ORDERED: FENTANYL CITRATE/PF 50 MCG/1 ML VIAL ONE (10:31)
[2022-03-12] MEDS ORDERED: glycopyrrolate 0.2mg/ml inj ONE (10:32)
[2022-03-12] MEDS ORDERED: rocuronium 10mg/ml inj IV ONE (10:32)
[2022-03-12] MEDS ORDERED: ondansetron/PF 4mg/2ml inj ONE (10:32)
[2022-03-12] MEDS ORDERED: dexamethasone sod phosphate 4mg/ml inj. ONE (10:32)
[2022-03-12] MEDS ORDERED: propofol inj 20 ML IV ONE (10:32)
[2022-03-12] MEDS ORDERED: neostigmine methylsulfate 1 MG/ML 10ml vial ONE (10:32)
[2022-03-12] MEDS ORDERED: LIDOcaine 2% (20mg/ml) 5ml vial ONE (10:32)
[2022-03-12] MEDS ORDERED: sevoflurane 250ml liquid IH ONE (10:33)
[2022-03-12] MEDS ORDERED: labetalol 20mg/4ml (5mg/ml) syringe IV ONE (10:56)
[2022-03-12] MEDS ORDERED: morphine 2 MG/ML inj. syringe IV PRN (11:15)
[2022-03-12] MEDS ORDERED: ringers solution, lacted 1,000 ML IV SCH (11:15)
[2022-03-12] MEDS ORDERED: ondansetron/PF 4mg/2ml inj IV PRN (11:15)
[2022-03-12] MEDS ORDERED: hydrALAZINE 20mg/ml inj. IV PRN (11:15)
[2022-03-12] MEDS ORDERED: fentaNYL/PF 50MCG/1 ML 2ML syringe IV PRN (11:15)
[2022-03-12] MEDS ORDERED: labetalol 20mg/4ml (5mg/ml) syringe IV PRN (11:15)
[2022-03-12] MEDS ORDERED: hydrALAZINE 20mg/ml inj. IV ONE (11:28)
--- NOTE | 2022-03-12 12:30 | NUR ---
[facility], accompanied by Anesthesiologist JACKI and report given by Anesthesiologist. PT IS AWAKE AND TALKING, ANSWERING QUESTIONS APPROPRIATELY. PT PLACED ON BEDSIDE MONITOR, VSS. PT IS IN SR WITH RATE IN 60'S. PT IS ON RA AND TOLERATING WELL, O2 SAT > 94%. PT HAS LAP SITE X4 TO ABD WITH DERMABOND IN PLACE, CDI. PT HAS 20G PIV TO RT HAND WITH LR INFUSING ORDERED. PT STATES PAIN AND WILL TREAT ORDERED AND CONTINUE TO ASSESS.
[2022-03-12] MEDS: morphine 4 MG/ML inj SYRINge IV PRN ×2 (12:31→13:11)
[2022-03-12] MEDS: fentaNYL/PF 50MCG/1 ML 2ML syringe IV PRN ×2 (12:40→12:57)
[2022-03-12] MEDS ORDERED: acetaminophen 1,000mg/100ml IV 100 ML IV ONE (12:40)
[2022-03-12] MEDS: HYDROcodone/acetaminophen 10/325mg tab PO ONE ×2 (13:22→15:00)
--- NOTE | 2022-03-12 13:30 | NUR ---
PHARMACY NOTIFIED AFTER RECEIVING A NOTICE AFTER SCANNING [facility] ABOUT PT RECEIVING 4,000MG ACETAMINOPHEN WHEN PT HAS RECEIVED 1,000MG X1. PHARMACY STATED THEY COULD NOT CHANGE THAT MESSAGE ON THEIR END AND THEY TOO SHOWED PT RECEIVING THE ONE TIME DOSE 1,000MG.
[2022-03-12] MEDS ORDERED: proCHLORperazine 10 MG/2 ml inj IV PRN (14:10)
[2022-03-12] MEDS ORDERED: HYDROcodone/acetaminophen 10/325mg tab PO ONE (15:00)
--- NOTE | 2022-03-12 15:00 | NUR ---
PT REQUESTED THAT HER PHARMACY BE CHANGED TO [facility] ON [facility] D/T HER NORMAL PHARMACY WHICH [facility] BE[facility]OS[facility] WEEK. NURSING CALLED DR GOMEZ'S OFFICE AND PRESCRIPTION HAS BEEN SENT OVER TO [facility]. NURSING CALLED TO VERIFY PRESCRIPTION, WAS INFORMED THAT PT'S HAS TYLENOL #4 ALREADY PRESCRIBED AND IT CURRENT AND THEY COULD NOT FILL PRESCRIPTION FOR NORCO UNTIL THEN. PT IS AWARE AND STATED SHE WAS OK. INSTRUCTIONS GIVEN TO CALL 'S OFFICE IF ANY PROBLEMS SHOULD OCCUR.
--- NOTE | 2022-03-12 15:45 | NUR ---
PATIENT A&OX4, DENIES PAIN, V/S WNL, SCD OFF, 20G TO RT HAND D/C. PT VOIDED 450ML. I HAVE REVIEWED D/C INSTRUCTIONS WITH PATIENT INSTRUCTIONS WITH PATIENT AND THEY HAVE VERBALIZED UNDERSTANDING. PATIENT D/C HOME WITH ALL BELONGINGS AND FAMILY TRANSPORTED PATIENT HOME.
== END 2022-03-12 15:35 | disposition home or self-care (01) ==
LOC: PAS 07:29
PROVIDERS: ATTEND Surgery
DX: K43.9 Ventral hernia without obstruction or gangrene (principal); I10 Essential (primary) hypertension; E11.9 Type 2 diabetes mellitus without complications; K74.60 Unspecified cirrhosis of liver; Z88.0 Allergy status to penicillin; Z90.710 Acquired absence of both cervix and uterus; Z79.899 Other long term (current) drug therapy; Z88.8 Allergy status to other drugs, medicaments and biological substances; Z98.890 Other specified postprocedural states
CPT/HCPCS: 36415; 49652; 64488; 80053; 81001; 82948; 85025; 93005; C1781; C9290; J0131; J0360; J0780; J1100; J2250; J2270; J2405; J2704; J3010; J3490; J7030; J7120; S0020; Z7506; Z7508; Z7512; A4618; A7000; J2710

== ENCOUNTER 2022-06-11 10:49 | Emergency (ER) | payer MEDICARE, MEDICAID ==
[~2022-06-11] VITALS: Ht 157.5 cm; Wt 91.4 kg
[~2022-06-11 10:49] MED LIST changes: -DOCUMENT DATE & TIME OF BETA-BLOCKER PO ONE; -clindamycin-Cleocin 900mg/D5W 50 ML IV ONE; -famotidine 20mg tablet PO ONE; -ringers solution, lacted 1,000 ML IV SCH
[2022-06-11 11:29] LABS: BASOPHILS # (AUTO) 0.1 X10'3 (0-0.2); BASOPHILS % (AUTO) 0.9 % (0-1); EOSINOPHILS # (AUTO) 1.1 X10'3 (0-0.9); EOSINOPHILS % (AUTO) 8.2 % (0-6); HEMATOCRIT 51.6 % (35.0-45.0); HEMOGLOBIN 17.4 g/dl (12.0-16.0); LYMPHOCYTES # (AUTO) 3.4 X10'3 (1.1-4.8); LYMPHOCYTES % (AUTO) 25.1 % (21-51); MEAN CORPUSCULAR HGB CONC 33.8 g/dL (33.0-36.5); MEAN CORPUSCULAR VOLUME 88.8 FL (78-98); MEAN PLATELET VOLUME 8.4 FL (7.4-10.4); MONOCYTES # (AUTO) 0.9 X10'3 (0-0.9); MONOCYTES % (AUTO) 6.9 % (2-12); NEUTROPHILS # (AUTO) 7.9 X10'3 (1.8-7.7); NEUTROPHILS % (AUTO) 58.9 % (42-75); PLATELET COUNT 266 X10'3 (140-440); RED BLOOD COUNT 5.81 X10'6 (4.20-5.60); RED CELL DISTRIBUTION WIDTH 14.6 % (11.5-14.5); WHITE BLOOD COUNT 13.3 X10'3 (4.5-11.0)
[2022-06-11 11:36] LABS: URINE HCG NEGATIVE (NEG)
[2022-06-11 11:37] LABS: CLARITY,URINE CLEAR (Clear); COLOR,URINE YELLOW (Yellow); GLUCOSE, URINE NEGATIVE (Neg); KETONES,URINE NEGATIVE (Neg); LEUKOCYTE ESTERASE ,URINE NEGATIVE (Neg); NITRITES, URINE NEGATIVE (Neg); OCCULT BLOOD,URINE NEGATIVE (Neg); PROTEIN,URINE NEGATIVE (Neg); UROBILINOGEN,URINE 0.2 E.U/dL (0.2-1.0)
[2022-06-11 11:43] LABS: ALANINE AMINOTRANSFERASE 18 U/L (12-78); ALBUMIN 3.8 G/DL (3.4-5.0); ALKALINE PHOSPHATASE 68 IU/L (46-116); ANION GAP 11 (8-16); ASPARTATE AMINO TRANSFERASE 20 U/L (10-37); BILIRUBIN,TOTAL 0.9 MG/DL (0.1-1.0); BLOOD UREA NITROGEN 12 MG/DL (7-18); BUN/CREATININE RATIO 12.6 (10.0-20.0); CALCIUM 9.3 MG/DL (8.5-10.1); CHLORIDE 105 MMOL/L (99-107); CREATININE 0.95 MG/DL (0.40-0.90); GLUCOSE 132 MG/DL (70-104); POTASSIUM 3.8 MMOL/L (3.5-5.1); SODIUM 139 MMOL/L (135-145); TOTAL CARBON DIOXIDE 22.8 MMOL/L (24-32); TOTAL PROTEIN 7.7 G/DL (6.4-8.2); eGFR 60 ML/MIN
[2022-06-11 11:50] LABS: UA COLLECTION TYPE CLN CATCH MIDSTREAM
[2022-06-11 11:51] LABS: LIPASE 65 U/L (73-393)
[2022-06-11] MEDS ORDERED: proCHLORperazine 10mg tablet PO ONE (12:50)
[2022-06-11] MEDS ORDERED: HYDROcodone/acetaminophen 5mg/325mg tablet PO ONE (12:50)
[2022-06-11] MEDS ORDERED: PROC-8 PO (14:05)
[2022-06-11] MEDS ORDERED: ONDA8TAB13 PO (14:05)
[2022-06-11] MEDS ORDERED: HYDR-3965 PO (14:05)
[2022-06-11 14:44] VITALS: BP 142/78
== END 2022-06-11 14:47 | disposition home or self-care (01) ==
LOC: ER 10:49
DX: E86.0 Dehydration (principal); R10.84 Generalized abdominal pain; R11.2 Nausea with vomiting, unspecified; I10 Essential (primary) hypertension; K21.9 Gastro-esophageal reflux disease without esophagitis; E11.9 Type 2 diabetes mellitus without complications; G89.29 Other chronic pain; M54.9 Dorsalgia, unspecified; F31.9 Bipolar disorder, unspecified; Z88.0 Allergy status to penicillin; Z88.8 Allergy status to other drugs, medicaments and biological substances; Z88.6 Allergy status to analgesic agent
CPT/HCPCS: 36415; 71045; 74176; 80053; 81003; 81025; 83690; 83880; 84145; 84484; 85025; 93005; 99285; Q0164

== ENCOUNTER 2024-07-21 11:22 | Outpatient (CLI) | payer MEDICAID, MEDICARE ==
[2024-07-21] VITALS (11 sets, daily range): BP systolic 177–210; BP diastolic 93–179; PULSE 83–160
[~2024-07-21 11:22] MED LIST changes: +ONDA-245 PO; +PROC-8 PO
== END 2024-07-22 23:59 | disposition home or self-care (01) ==
LOC: CARD DIAG 11:22
PROVIDERS: ATTEND Internal Medicine Cardiovascular Disease
DX: R40.4 Transient alteration of awareness (principal)
CPT/HCPCS: 93660

== ENCOUNTER 2024-09-15 18:09 | Emergency (ER) | payer MEDICARE ==
[~2024-09-15] VITALS: Ht 157.5 cm; Wt 75.0 kg
[~2024-09-15 18:09] MED LIST changes: -AMLO5TAB16 PO; -CARV12.549 PO; +CARV3.122 PO; +HYDR-3686 PO; +HYDR200T73 PO; -OMEP20CA16 PO; +ONDA-243 PO; -ONDA-245 PO; -PROC-8 PO; -SUCR1TAB PO
[2024-09-15 18:12] VITALS: TEMP 97.7
--- NOTE | 2024-09-15 18:47 | Physician Documentation ---
History of Present Illness ~ Chief Complaint: Headache Stated Complaint: EYE PAIN Time Seen by MD: 18:21 Primary Medical Doctor: ALEISHA LINDSEY NP Mode of Arrival: EMS HPI Patient presents to the emergency room for evaluation of headache. Onset last night. No prior instances. Headache located on her right temporal and behind her eye. She has taken some Tylenol proximally 4 hours ago with no relief. Denies any vision changes. Reports mild photophobia. Medication Reconciliation Allergies: Coded Allergies: lisinopril (Verified Allergy, Severe, ANAPHYLAXIS, 09/15/24) Penicillins (Verified Allergy, Unknown, HIVES, 09/15/24) bupropion (Verified Allergy, Unknown, 09/15/24) buprenorphine (Verified Adverse Reaction, Mild, N/V ABD PAIN, 09/15/24) Scheduled Hydroxychloroquine Sulfate* (Plaquenil*), 1 TAB PO BID, (Reported) ONDANSETRON ODT 4mg tablet (Ondansetron Odt), 1 TAB PO PRN, (Reported) Scheduled PRN Carvedilol (Carvedilol), 1 TAB PO PRN PRN for high blood pressure, (Reported) Hydroxyzine Hcl* (Atarax*), 1 TAB PO PRN PRN for itching, (Reported) Past Medical History Past Medical History: Hypertension, Previously Intubated, Cirrohsis, GERD, Diabetes, Chronic Back Pain, Bipolar Past Surgical History: abdominal surgery, cholecystectomy, other Patient History: Cardiac arrest FH: of unknown cause FATHER, , Onset:65 MOTHER, , Onset:60 Alcohol Use: Rarely Drug Use: marijuana Lives with: Spouse Lives In: Home Occupation: employed Review of Systems ROS All review of systems negative except as per HPI Physical Exam Vital Signs: Temperature: 97.7, Source: Oral, Heart Rate: 60, Respiratory Rate: 16, BP: 186/85, Pulse Oximetry: 99, Weight: 75.000 Oxygen Flow Rate: 0 Physical Exam General: Patient is awake, alert, oriented x4 in mild distress Head: Normocephalic and atraumatic. Eyes: Conjunctival normal. EOMI. PERRL. Pressures in bilateral eyes 15 mm of Hg ENT: Mucous membranes moist. No tenderness to palpation to temporal artery Neck: Supple, trachea is midline. Chest: Clear to auscultation bilaterally without rales, rhonchi, or wheezes. There is no accessory muscle use or retractions. Cardiac: RRR without murmurs, gallops, or rubs. Neuro: Cranial nerves II-XII grossly intact. No focal neuro deficits. Progress Results/Orders Results/Orders Completed Orders - ARMANI ENCARNACION MD ESR (09/15/24 18:34) Cbc/Diff (09/15/24 18:34) BMP (09/15/24 18:34) Normal Saline 1000ml (Sodium Chloride 10 (09/15/24 18:35) Ketorolac Trometh 15mg/Ml Vial (Toradol (09/15/24 18:35) Prochlorperazine Inj (Compazine Inj) (09/15/24 18:35) Medications Received in ER Medications (Trade) Dose Ordered Sig/Denise Route PRN Reason Start Time Stop Time Status Last Admin Dose Admin Sodium Chloride 1,000 ml @ 1,000 mls/hr ONCE ONCE IV 09/15/24 18:35 09/15/24 19:34 DC 09/15/24 19:11 1,000 MLS/HR (Toradol injection) 15 mg ONCE ONCE IV 09/15/24 18:35 09/15/24 18:38 DC 09/15/24 19:06 15 MG (Compazine inj) 5 mg ONCE ONCE IV 09/15/24 18:35 09/15/24 18:38 DC 09/15/24 19:06 5 MG Vital Signs 09/15/24 09/15/24 09/15/24 18:12 18:32 19:23 Temp 97.7 Pulse 60 54 Resp 20 16 18 B/P (MAP) 186/85 169/90 (116) Pulse Ox 99 97 O2 Flow Rate 0 Laboratory Tests Test 09/15/24 18:25 White Blood Count 6.6 Red Blood Count 5.10 Hemoglobin 15.5 Hematocrit 45.1 H Mean Corpuscular Volume 88.4 Mean Corpuscular Hemoglobin 30.4 Mean Corpuscular Hemoglobin Concent 34.3 Red Cell Distribution Width 14.3 Platelet Count 215 Mean Platelet Volume 8.9 Neutrophils (%) (Auto) 56.9 Lymphocytes (%) (Auto) 26.6 Monocytes (%) (Auto) 11.8 Eosinophils (%) (Auto) 3.5 Basophils (%) (Auto) 1.2 H Neutrophils # (Auto) 3.7 Lymphocytes # (Auto) 1.7 Monocytes # (Auto) 0.8 Eosinophils # (Auto) 0.2 Basophils # (Auto) 0.1 CBC Comment Erythrocyte Sedimentation Rate 4 Sodium Level 138 Potassium Level 3.4 L Chloride Level 104 Carbon Dioxide Level 22.6 L Anion Gap 11 Blood Urea Nitrogen 10 Creatinine 1.09 H Estimated GFR/1.73 m2 51 BUN/Creatinine Ratio 9.2 L Glucose Level 106 H Calcium Level 8.7 Albumin 3.5 Chemistry Comments Medical Decision Making Findings Patient presented to the emergency room with headache as per HPI. Differentials include but are not limited to temporal arteritis, tension headache, migraine headache, acute angle glaucoma. ESR is reassuring he had not feel patient requires workup for temporal arteritis. She is responding to therapy. And he had not feel she requires a CT scan. No meningismus and he had not feel she is suffering from meningitis. Patient was requesting to go home Departure Disposition: HOME / SELF CARE / HOMELESS Impression: Primary Impression: Headache Condition: Improved Discharge Instructions: Headache Referrals: NO PRIMARY CARE PROVIDER (PCP) Signature Scribe Signature: No scribe Attestation: The note accurately reflects work and decisions made by me.Armani Encarnacion MD 09/15/24 20:00 ARMANI ENCARNACION MD Sep 15, 2024 18:47
[2024-09-15 18:51] LABS: MEAN PLATELET VOLUME 8.9 FL (7.4-10.4); RED CELL DISTRIBUTION WIDTH 14.3 % (11.5-14.5)
[2024-09-15] MEDS: ketorolac trometh 15mg/ml vial 15 MG/ML ML IV ONE (19:06)
[2024-09-15] MEDS: normal saline 1000ml 1,000 ML IV ONE (19:11)
[2024-09-15 19:18] LABS: CREATININE 1.09 MG/DL (0.40-0.90); TOTAL CARBON DIOXIDE 22.6 MMOL/L (24-32); eCRCL 42 ML/MIN; eGFR 51 ML/MIN
[2024-09-15 20:04] VITALS: BP 176/91; PULSE 78; RESP 16; O2SAT 98
== END 2024-09-15 20:10 | disposition home or self-care (01) ==
LOC: ER 18:10
DX: R51.9 Headache, unspecified (principal); F12.90 Cannabis use, unspecified, uncomplicated; E11.9 Type 2 diabetes mellitus without complications; I10 Essential (primary) hypertension; K21.9 Gastro-esophageal reflux disease without esophagitis; F31.9 Bipolar disorder, unspecified; Z88.8 Allergy status to other drugs, medicaments and biological substances; Z88.0 Allergy status to penicillin; Z90.49 Acquired absence of other specified parts of digestive tract; Z79.899 Other long term (current) drug therapy
CPT/HCPCS: 36415; 80048; 85025; 85651; 96361; 96374; 96375; 99284; J0780; J1885; J7030

== ENCOUNTER 2024-12-06 07:41 | Outpatient (CLI) | payer MEDICARE ==
[2024-12-06] VITALS (21 sets, daily range): BP systolic 131–169; BP diastolic 79–127; PULSE 93–188
== END 2024-12-06 23:59 | disposition home or self-care (01) ==
LOC: CARD DIAG 07:41
PROVIDERS: ATTEND Internal Medicine Cardiovascular Disease
DX: R40.1 Stupor (principal)
CPT/HCPCS: 93660